=== PATIENT | female | born 1970 | race Asian ===

== ENCOUNTER → 2017-09-04 | Outpatient (CLI) | payer BC | END | disposition home or self-care (01) | LOC: U/S 08:54 | DX: N60.09 Solitary cyst of unspecified breast (principal); D25.9 Leiomyoma of uterus, unspecified | CPT/HCPCS: 76830; 76856 ==

== ENCOUNTER 2018-01-17 18:50 | Emergency (ER) | payer BC | END 2018-01-17 19:06 | disposition home or self-care (01) | LOC: FTE 18:50 | DX: H66.92 Otitis media, unspecified, left ear (principal); E11.9 Type 2 diabetes mellitus without complications; R11.0 Nausea | CPT/HCPCS: 99284 ==

== ENCOUNTER → 2018-06-26 | Outpatient (CLI) | payer BC | END | disposition home or self-care (01) | LOC: U/S 09:30 | DX: R10.2 Pelvic and perineal pain (principal) | CPT/HCPCS: 76830; 76856 ==

== ENCOUNTER 2018-10-03 08:31 | Emergency (ER) | payer BC | END 2018-10-03 10:32 | disposition home or self-care (01) | LOC: FTE 08:31 | DX: S92.415A Nondisplaced fracture of proximal phalanx of left great toe, initial encounter for closed fracture (principal); E11.9 Type 2 diabetes mellitus without complications; W20.8XXA Other cause of strike by thrown, projected or falling object, initial encounter; Y92.9 Unspecified place or not applicable | CPT/HCPCS: 73630; 73630-LT; 99283-25 ==

== ENCOUNTER → 2018-10-15 | Outpatient (CLI) | payer BC | END | disposition home or self-care (01) | LOC: RAD 10:18 | DX: M79.672 Pain in left foot (principal) | CPT/HCPCS: 73620 ==